=== PATIENT | male | born 1970 | race African-American/Black ===

== ENCOUNTER 2022-11-06 15:03 | Inpatient (IN) | payer OTHER ==
[2022-11-06 15:52] VITALS: BMI 23.3
[2022-11-06] MEDS ORDERED: BENZOCAINE/MENTHOL (CHLORASEPTIC ) LOZENGE MM PRN (18:34)
[2022-11-06] MEDS ORDERED: NICOTINE POLACRILEX 2 MG GUM BUC PRN (18:34)
[2022-11-06] MEDS ORDERED: MAGNESIUM HYDROX 2400MG/30ML ORAL SUSPENSION 30 ML CUP PO PRN (18:34)
[2022-11-06] MEDS ORDERED: MELATONIN 5 MG TABLETS PO PRN (18:34)
[2022-11-06] MEDS ORDERED: LOPERAMIDE HCL 2 MG CAPSULE PO PRN (18:34)
[2022-11-06] MEDS ORDERED: P-EPHED 60MG/TRIPROLIDI 2.5MG TABLET PO PRN (18:34)
[2022-11-06] MEDS ORDERED: IBUPROFEN 400 MG TABLET (FP) PO PRN (18:34)
[2022-11-06] MEDS ORDERED: BENZONATATE 200 MG CAPSULE PO PRN (18:34)
[2022-11-06] MEDS ORDERED: guaiFENesin 600 MG TABLET.ER (FP) PO PRN (18:34)
[2022-11-06] MEDS ORDERED: POLYETHYLENE GLYCOL (HEALTHYLAX) 3350 17 GM PACKET PO PRN (18:34)
[2022-11-06] MEDS ORDERED: ACETAMINOPHEN 325 MG TABLET (FP) PO PRN (18:34)
[2022-11-06] MEDS ORDERED: IBUPROFEN 600 MG TABLET (FP) PO PRN (18:34)
[2022-11-06] MEDS ORDERED: MAG HYDROX/AL HYDROX/SIMETH 30 ML UNIT-DOSE CUP PO PRN (18:34)
[2022-11-06] MEDS ORDERED: NICOTINE 10 MG CARTRIDGE (INHALER) IH PRN (18:34)
[2022-11-06] MEDS ORDERED: TUBERCULIN PPD 5 TU/0.1ML SYRINGE (IN PATIENT USE ONLY) ID ONE (21:45)
[2022-11-06] MEDS: THIAMINE HCL 100 MG TABLET (FP) PO SCH (22:10)
[2022-11-07] MEDS: PRENATAL VITAMINS W/ FOLIC ACID TABLET (FP) PO SCH (10:24)
[2022-11-07 11:10] LABS: HEMATOCRIT 36.4 % (35.4-49); HEMOGLOBIN 12.3 GM/dL (11.7-16.9); MCH 30.2 pg (25.7-33.7); MCHC 33.9 g/dl (32.0-35.9); MEAN CELL VOLUME 89.1 fl (80-96); MEAN PLT VOLUME 9.3 fl (7.5-11.1); PLATELET COUNT 179 10^3/uL (134-434); RBC 4.08 M/mm3 (4.00-5.60); RDW 13.3 % (11.9-15.9); WHITE BLOOD COUNT 10.4 K/mm3 (4.0-10.0)
[2022-11-07 11:12] LABS: ALBUMIN 2.8 g/dl (3.4-5.0); BLOOD UREA NITROGEN 10.3 mg/dL (7-18); CALCIUM 8.8 mg/dL (8.5-10.1)
[2022-11-07 11:16] LABS: CREATININE 0.8 mg/dL (0.55-1.3)
[2022-11-07 11:17] LABS: BILIRUBIN,TOTAL 0.8 mg/dL (0.2-1); TOT PROT 6.3 g/dl (6.4-8.2)
[2022-11-07 11:57] LABS: SYPHILIS W/ RPR CONF NON-REACTIVE (NONREACTIVE)
[2022-11-07] MEDS: THIAMINE HCL 100 MG TABLET (FP) PO SCH (21:15)
[2022-11-07] MEDS: DIVALPROEX SODIUM 500 MG TABLET E.C. PO SCH (21:16)
[2022-11-07] MEDS: busPIRone HCL 10 MG TABLET (FP) PO SCH (21:16)
[2022-11-07] MEDS: BENZTROPINE MESYLATE 1 MG TABLET PO SCH (21:16)
[2022-11-08] MEDS: PRENATAL VITAMINS W/ FOLIC ACID TABLET (FP) PO SCH (09:52)
[2022-11-08] MEDS: BENZTROPINE MESYLATE 1 MG TABLET PO SCH ×2 (09:52→21:21)
[2022-11-08] MEDS: busPIRone HCL 10 MG TABLET (FP) PO SCH ×2 (09:52→21:21)
[2022-11-08] MEDS: DIVALPROEX SODIUM 250 MG TABLET E.C. PO SCH (10:22)
[2022-11-08 16:54] LABS: EPI CELLS 16 /uL (0-25.1); HYALINE CASTS 0 /uL (0-3.1); URINE APPEARANCE CLEAR; URINE BACTERIA 8504 /uL (0-1359); URINE BILIRUBIN NEGATIVE (NEGATIVE); URINE COLOR YELLOW; URINE GLUCOSE (UA) NEGATIVE (NEGATIVE); URINE KETONE NEGATIVE (NEGATIVE); URINE LEUK ESTERASE 1+ (NEGATIVE); URINE NITRITE NEGATIVE (NEGATIVE); URINE PROTEIN NEGATIVE (NEGATIVE); URINE RBC 11 /uL (0-23.9); URINE WBC 23 /uL (0-25.8)
[2022-11-08] MEDS: THIAMINE HCL 100 MG TABLET (FP) PO SCH (21:21)
[2022-11-08] MEDS: DIVALPROEX SODIUM 500 MG TABLET E.C. PO SCH (21:21)
[2022-11-09] MEDS: BENZTROPINE MESYLATE 1 MG TABLET PO SCH ×2 (09:38→23:01)
[2022-11-09] MEDS: DIVALPROEX SODIUM 250 MG TABLET E.C. PO SCH (09:38)
[2022-11-09] MEDS: PRENATAL VITAMINS W/ FOLIC ACID TABLET (FP) PO SCH (09:38)
[2022-11-09] MEDS: busPIRone HCL 10 MG TABLET (FP) PO SCH ×2 (09:38→23:01)
[2022-11-09] MEDS ORDERED: INSULIN (NOVOLOG) ASPART 100 UNITS/ML 10ML VIAL ONE (22:31)
[2022-11-09] MEDS: THIAMINE HCL 100 MG TABLET (FP) PO SCH (23:02)
[2022-11-09] MEDS: DIVALPROEX SODIUM 500 MG TABLET E.C. PO SCH (23:02)
[2022-11-10] MEDS: busPIRone HCL 10 MG TABLET (FP) PO SCH ×2 (09:40→21:32)
[2022-11-10] MEDS: PRENATAL VITAMINS W/ FOLIC ACID TABLET (FP) PO SCH (09:40)
[2022-11-10] MEDS: BENZTROPINE MESYLATE 1 MG TABLET PO SCH ×2 (09:40→21:32)
[2022-11-10] MEDS: DIVALPROEX SODIUM 250 MG TABLET E.C. PO SCH (09:41)
[2022-11-10] MEDS: DIVALPROEX SODIUM 500 MG TABLET E.C. PO SCH (21:32)
[2022-11-10] MEDS: THIAMINE HCL 100 MG TABLET (FP) PO SCH (21:32)
[2022-11-11] MEDS: PRENATAL VITAMINS W/ FOLIC ACID TABLET (FP) PO SCH (09:59)
[2022-11-11] MEDS: busPIRone HCL 10 MG TABLET (FP) PO SCH ×2 (09:59→21:15)
[2022-11-11] MEDS: BENZTROPINE MESYLATE 1 MG TABLET PO SCH ×2 (09:59→21:15)
[2022-11-11] MEDS: DIVALPROEX SODIUM 250 MG TABLET E.C. PO SCH (09:59)
[2022-11-11] MEDS: THIAMINE HCL 100 MG TABLET (FP) PO SCH (21:14)
[2022-11-11] MEDS: DIVALPROEX SODIUM 500 MG TABLET E.C. PO SCH (21:15)
[2022-11-12 06:37] VITALS: BP 135/84; PULSE 100; RESP 18; TEMP 97.3
[2022-11-12] MEDS: PRENATAL VITAMINS W/ FOLIC ACID TABLET (FP) PO SCH (09:51)
[2022-11-12] MEDS: DIVALPROEX SODIUM 250 MG TABLET E.C. PO SCH (09:51)
[2022-11-12] MEDS: BENZTROPINE MESYLATE 1 MG TABLET PO SCH (09:51)
[2022-11-12] MEDS: busPIRone HCL 10 MG TABLET (FP) PO SCH (09:51)
[2022-11-12] MEDS ORDERED: LORazepam 1 MG TABLET PO STA (12:15)
== END 2022-11-12 13:22 | disposition short-term general hospital (02) | DRG 772 ==
LOC: YASAS 15:03 → Y3E 21:39
PROVIDERS: ADMIT Allergy & Immunology; ATTEND Psychiatry & Neurology Pain Medicine
PROC: HZ42ZZZ Group Counseling for Substance Abuse Treatment, Cognitive-Behavioral (ICD-10-PCS; principal; 2022-11-06)
DX: F14.20 Cocaine dependence, uncomplicated (principal); F17.210 Nicotine dependence, cigarettes, uncomplicated; F25.9 Schizoaffective disorder, unspecified; F31.9 Bipolar disorder, unspecified; R56.9 Unspecified convulsions; Z88.0 Allergy status to penicillin; Z91.013 Allergy to seafood
CPT/HCPCS: 36415; 80053; 80164; 81003; 85027; 86780; 86803; 87811; C9803-CS; U0003; U0005

== ENCOUNTER 2022-11-09 22:18 | Emergency (ER) | payer OTHER ==
[2022-11-09 22:28] VITALS: TEMP 98; BMI 23.3
[2022-11-09 23:46] LABS: BASO % 0.8 % (0-2.0); EOS % 4.2 % (0-4.5); HEMATOCRIT 35.2 % (35.4-49); HEMOGLOBIN 11.9 GM/dL (11.7-16.9); LYMPH % 21.1 % (8-40); MCH 30.1 pg (25.7-33.7); MCHC 33.9 g/dl (32.0-35.9); MEAN CELL VOLUME 88.9 fl (80-96); MEAN PLT VOLUME 8.1 fl (7.5-11.1); NEUT % 58.9 % (42.8-82.8); PLATELET COUNT 242 10^3/uL (134-434); RBC 3.96 M/mm3 (4.00-5.60); RDW 13.3 % (11.9-15.9); WHITE BLOOD COUNT 8.2 K/mm3 (4.0-10.0)
[2022-11-09 23:52] LABS: INR 1.03 (0.83-1.09)
[2022-11-09 23:55] LABS: ACTIVATED PTT 30.4 SECONDS (25.2-36.5)
[2022-11-10 00:04] LABS: CALCIUM 8.6 mg/dL (8.5-10.1)
[2022-11-10 00:05] LABS: ALBUMIN 2.8 g/dl (3.4-5.0); BLOOD UREA NITROGEN 16.1 mg/dL (7-18); MAGNESIUM 1.9 mg/dL (1.8-2.4)
[2022-11-10 00:08] LABS: CREATININE 0.7 mg/dL (0.55-1.3)
[2022-11-10 00:09] LABS: BILIRUBIN,TOTAL 0.2 mg/dL (0.2-1); TOT PROT 6.4 g/dl (6.4-8.2)
[2022-11-10] MEDS ORDERED: VALPROATE SODIUM 250 MG/5 ML UNIT DOSE CUP PO ONE (01:08)
[2022-11-10] MEDS ORDERED: VALPROATE SODIUM 500 MG/5 ML VIAL IVPB ONE (01:11)
[2022-11-10] MEDS ORDERED: VALPROATE SODIUM 500 MG/5 ML VIAL ONE (01:11)
[2022-11-10 01:44] VITALS: BP 122/71; PULSE 70; RESP 16
== END 2022-11-10 02:04 | disposition home or self-care (01) ==
LOC: JER 22:18
PROC: 3E033GC Introduction of Other Therapeutic Substance into Peripheral Vein, Percutaneous Approach (ICD-10-PCS; principal; 2022-11-09)
DX: R56.9 Unspecified convulsions (principal); Z20.822 Contact with and (suspected) exposure to COVID-19
CPT/HCPCS: 0241U-QW; 36415; 70450-TC; 71045-TC-FY; 80053; 80164; 82550; 82962; 83605; 83735; 84146; 84484; 85025; 85610; 85730; 93005; 93010; 99285-25